=== PATIENT | female | born 1995 | race Caucasian/White ===

== ENCOUNTER 2023-04-11 20:01 | Emergency (ER) | payer BC, SELFPAY ==
[2023-04-11 20:04] VITALS: BP 120/84; PULSE 85; RESP 16; TEMP 36.4; O2SAT 100
--- NOTE | 2023-04-11 20:15 | RAD_ITS ---
STUDY: X-RAY - RIGHT ANKLE REASON FOR EXAM: Female, 27 years old. fall TECHNIQUE: 3 view(s) of the ankle. COMPARISON: None. FINDINGS: There is a spiral fracture of the distal fibular shaft with mild dorsal displacement of the distal fracture fragment and no significant angulation. There is a markedly displaced fracture across the base of the medial malleolus. Probable nondisplaced fracture of the posterior lip of the tibial metaphysis. The talus is shifted laterally. Normal visualized talus and calcaneus. The visualized subtalar, talonavicular, calcaneocuboid and tarsal articulations are normal. There is diffuse soft tissue swelling. RAD/Ankle min 3 Views IMPRESSION: Fracture of the distal fibular shaft, displaced fracture of the base of the medial malleolus, probable nondisplaced fracture of the posterior tibial plafond. Electronically Signed: Home Coronel MD at 21:33 EDT ,
[2023-04-11 20:33] VITALS: BMI 41.5
--- NOTE | 2023-04-11 22:09 | EX.ED.DYSGE1 ---
HPI History of Present Illness Chief Complaint: Lower Extremity Injury Narrative Narrative: Patient presents with right ankle pain after a fall earlier today. No knee pain. She is denying any other injuries. [facility] Medical History (Updated 04/11/23 @ 22:[address] Long Overton MD) OCD (obsessive compulsive disorder) Home Medications fluoxetine 20 mg tablet 40 mg PO DAILY 04/11/23 [History Last Taken Unknown] hydrocodone-acetaminophen 5-325mg 5mg-325mg 1 tab PO Q4H PRN PRN Pain 3 days #10 TABLETS 04/11/23 [Rx Last Taken Unknown] Allergy/AdvReac Type Severity Reaction Status Date / Time No Known Allergies Allergy Verified 04/11/23 20:33 Social History Smoking Status: Never smoker ROS ROS ED ROS Narrative Past medical history: none Medications: Reviewed Social history: Noncontributory Review of systems: Musculoskeletal: Right ankle pain Skin: No abrasions or lacerations Neurological: No weakness or paresthesias Hematologic: No easy bleeding or easy bruising EXAM Physical Exam Narrative Exam Narrative: Physical exam General: Patient does not appear in significant distress . Head: Normocephalic, Atraumatic Neck: No C-spine tenderness Cardiovascular: Normal distal pulses Back: Nontender, Normal Inspection. Extremities: Right ankle pain and swelling mostly at the medial malleolus but some tenderness over the distal fibular region Skin: No abrasions, no lacerations Neurological: Normal strength and sensation Const Vital Signs: 04/11/23 20:04 Temperature 97.6 F L Temperature Source Temporal Pulse Rate 85 Respiratory Rate 16 Blood Pressure 120/84 H Blood Pressure Mean 96 Pulse Ox 100 MDM MDM MDM Narrative Medical decision making narrative: Ankle x-ray read by me as a medial malleolus fracture also a distal fibular fracture. It appears stable without any widening. Patient was splinted. I talked to him mom and boyfriend who are in the room and gave the history also. Patient be discharged in stable condition. I will give crutches and follow-up with orthopedics [place] was given in the ED and for home. Procedure note: Splint for fracture. A sugar-tong leg splint was done using Ortho-Glass. Patient tolerated procedure well. Radiography Diagnostic Testing: Clinical Impression(s) from Imaging Studies Ankle X-Ray 04/11/23 20:15 IMPRESSION: Fracture of the distal fibular shaft, displaced fracture of the base of the medial malleolus, probable nondisplaced fracture of the posterior tibial plafond. Electronically Signed: Home Coronel MD at 21:33 EDT , Discharge Plan Triage Chief Complaint: Lower Extremity Injury ED Provider: Long Overton Dx/Rx/DC Orders Clinical Impression: Fall, Ankle fracture Instructions: Understanding an Ankle Fracture Prescriptions: New hydrocodone-acetaminophen 5-325 mg tablet 1 tab PO Q4H PRN PRN (Reason: Pain) 3 Days Qty: 10 0RF No Action fluoxetine 20 mg Tablet 40 mg PO DAILY Primary Care Provider: Care Physician,No Primary Referrals: Tam Valdez DO [Med Staff - Active Staff] - 3-5 Days Care Physician,No Primary [Primary Care Provider] - Disposition Disposition: Home, Self Care
[2023-04-11 23:11] VITALS: RESP 17
[2023-04-11] MEDS: HYDROcodone Bitartrate/Apap 5/325 Tablet PO (23:17)
== END 2023-04-11 23:35 | disposition home or self-care (01) ==
PROVIDERS: Emergency Provider Emergency Medicine; Visit Provider Emergency Medicine
DX: S82.51XA Displaced fracture of medial malleolus of right tibia, initial encounter for closed fracture (principal); F42.9 Obsessive-compulsive disorder, unspecified; Z79.899 Other long term (current) drug therapy; W19.XXXA Unspecified fall, initial encounter; S82.401A Unspecified fracture of shaft of right fibula, initial encounter for closed fracture
CPT/HCPCS: 73610; 99284

== ENCOUNTER → 2023-04-22 | Outpatient (CLI) | payer BC, SELFPAY | END | disposition home or self-care (01) | LOC: LAB 14:58 | PROVIDERS: Referring Provider Student in an Organized Health Care Education/Training Program; Visit Provider Student in an Organized Health Care Education/Training Program | DX: S82.851A Displaced trimalleolar fracture of right lower leg, initial encounter for closed fracture (principal); Z84.81 Family history of carrier of genetic disease | CPT/HCPCS: 36415; 81241 ==

== ENCOUNTER 2025-07-08 11:12 | Outpatient (CLI) | payer BC, SELFPAY ==
[2025-07-08 15:51] LABS: Vitamin D,25 Hydroxy 19.8 ng/mL (30-100)
== END 2025-07-08 23:59 | disposition home or self-care (01) ==
LOC: LABSPEC 11:12
PROVIDERS: Internal Medicine; Referring Provider Nurse Practitioner Family; Visit Provider Nurse Practitioner Family
DX: Z12.4 Encounter for screening for malignant neoplasm of cervix (principal); E55.9 Vitamin D deficiency, unspecified
CPT/HCPCS: 36415; 82306; 88175; G0145